=== PATIENT | male | born 1960 | race Caucasian/White ===

== ENCOUNTER 2020-03-27 08:52 | Observation (INO) | payer OTHER, SELFPAY ==
[2020-03-27] VITALS (11 sets, daily range): BP systolic 102–172; BP diastolic 57–96; PULSE 65–98; RESP 14–18; TEMP 36.5–37.1; O2SAT 96–99; BMI 32.8; BMI 33.3
--- NOTE | 2020-03-27 08:58 | RAD_ITS ---
STUDY: X-RAY CHEST REASON FOR EXAM: Male, 59 years old. SOB X ONE DAY TECHNIQUE: Single AP portable view of the chest. COMPARISON: 08/02/2017 FINDINGS: The lungs are clear and expanded. There is no demonstrated pleural abnormality. Normal size heart. Normal mediastinum and drake. Normal visualized pulmonary arteries. Normal visualized aortic arch and descending thoracic aorta. Normal visualized thoracic spine. Normal visualized ribs, clavicles, and shoulders. There is no demonstrated abnormality of the visualized soft tissue structures of the upper abdomen. RAD/Chest 1 View (Portable) IMPRESSION: Normal x-ray examination of the chest. Electronically Signed: Tank Morales MD at 9:29 EDT Tel , Service support ,
--- NOTE | 2020-03-27 08:58 | EKG12_ITS ---
Test Reason : CP Blood Pressure : / mmHG Vent. Rate : 097 BPM Atrial Rate : 097 BPM P-R Int : 154 ms QRS Dur : 092 ms QT Int : 352 ms P-R-T Axes : 031 052 033 degrees QTc Int : 447 ms Normal sinus rhythm Normal ECG Confirmed by GILDA LORENZO MD ([id number]), commercial production editor MG SIMONS ([id number]) on 03/30/2020 1:34:49 PM Referred By: FELISHA Confirmed By:GILDA LORENZO MD
--- NOTE | 2020-03-27 09:12 | ED.VIS.GEN ---
History of Present Illness Chief Complaint: Chest Pain Informant: Patient Onset: Yesterday Narrative: 59-year-old male with past medical history of HTN, HLD, PE, LUÍS presents with chest pain. He states yesterday when he was lifting boxes he felt mildly short of breath but had no pain. Today he was sitting at home working on his computer when he developed left-sided chest pressure and shortness of breath. No associated nausea, vomiting, or diaphoresis. Chest pressure is 3/10. It does worsen with exertion and he felt lightheaded when walking around. No syncope. No cardiac history, never smoker. No history of stress test. He states he had a remote PE and was on Eliquis for 6 months but no longer takes this. Denies recent leg pain or swelling or recent surgery or travel. Denies fevers, chills, myalgias, cough, or sick contacts. His dad had an ID in his 50s. Past Medical History - Allergies and Home Meds Allergies/Adverse Reactions: Allergies erythromycin base Allergy (Verified 06/14/17 20:23) Hives Sulfa (Sulfonamide Antibiotics) Allergy (Verified 06/14/17 20:23) Unknown Primary Care Physician: Matthew Ambrose MD [Primary Care Provider] - Past Medical History: - - Hypertension, hyperlipidemia, pulmonary embolism, LUÍS Surgical History: no surgical history Smoking Status: Never smoker - Family History Maternal Family History: Reports: No pertinent history Paternal Family History: Reports: Heart Disease, - - Father at age of 54 because of heart attack. Sibling Family History: Reports: Heart Disease Review of Systems General: Denies: Chills, Fever, Sweats Eyes: Denies: Visual changes - bilaterally, Diplopia ENT: Denies: Rhinorrhea, Sore throat Cardiovascular: Reports: Chest pain. Denies: Palpitations Respiratory: Reports: Dyspnea. Denies: Cough, Dyspnea on exertion Gastrointestinal: Denies: Abdominal pain, Nausea, Vomiting, Diarrhea, Melena, Hematochezia Genitourinary: Denies: Dysuria, Hematuria, Frequency Musculoskeletal: Denies: Back pain, Extremity Pain Skin: Denies: Rash, Wounds Neurological: Denies: Headache, Weakness, Numbness Physical Exam Vital Signs/Narrative: Vital Signs Temp Pulse Resp BP Pulse Ox 03/27/20 08:58 98 03/27/20 08:53 98.7 F 98 18 172/95 H 97 Inital Vital Signs reviewed: Yes General: Well nourished, Well developed, No Acute Distress Head: Normocephalic, Atraumatic Eyes: Perrl, EOMI ENT: Moist mucous membranes, No rhinorrhea Neck: Supple, Nontender Cardiovascular: Regular rate, Regular rhythm, No murmurs Respiratory: No distress, CTA bilaterally, Chest nontender Abdomen: Soft, Nontender, Nondistended, Normal bowel sounds Back: Nontender, Normal Inspection Extremities: Nontender, No edema Skin: Normal color, No rash Neurological: Alert, Oriented x3, Cranial nerves II-XII grossly intact Psychological: Normal affect, Normal Mood Diagnostic/Tx/Re-eval Clinical Impression(s) from Imaging Studies Chest X-Ray 03/27/20 08:58 IMPRESSION: Normal x-ray examination of the chest. Electronically Signed: Tank Morales MD at 9:29 EDT Tel , Service support , Laboratory Data 03/27/20 03/27/20 03/27/20 08:56 08:56 08:56 WBC 4.4 RBC 5.38 Hgb 17.0 H Hct 49.9 MCV 92.8 MCH 31.6 MCHC 34.1 RDW Std Deviation 41.8 RDW Coeff of Dandy 12.2 Plt Count 222 MPV 9.7 Immature Gran % (Auto) 0.000 Neut % (Auto) 48.9 Lymph % (Auto) 37.6 [place] % (Auto) 9.6 Eos % (Auto) 3.4 Baso % (Auto) 0.5 Absolute Neuts (auto) 2.1 Absolute Lymphs (auto) 1.64 Nucleated RBC % 0 D-Dimer Quant (PE/DVT) 0.28 Sodium 140 Potassium 4.1 Chloride 106 Carbon Dioxide 29.0 Anion Gap 5 BUN 12 Creatinine 1.15 Estim Creat Clear Calc 70.02 Est GFR (MDRD) Af Amer 84 Est GFR (MDRD) Non-Af 69 BUN/Creatinine Ratio 10.4 Glucose 174 H Calcium 9.4 Troponin I < 0.015 - Rhythm Strip Rhythm Strip: Sinus Rhythm Rate: 97 - Medical Decision Making Patient appears well nontoxic. Vital signs show BP of 172/95, otherwise normal. BP improved with no intervention. EKG shows normal sinus rhythm with no sign of ischemia. D-dimer and troponin negative. Chest x-ray shows no acute process. He was given aspirin. Patient was having minimal pain here and declined nitroglycerin. Due to his risk factors and family history is a heart score of 4 and I recommended admission with a stress test. Patient is agreeable. Case was discussed with hospitalist and the patient was transferred to the floor in stable condition. ED Disposition - Plan for ED Patient: Disposition: Acute Care Hospital [facility] Diagnosis: Chest pain Referrals: Matthew Ambrose MD [Primary Care Provider] -
[2020-03-27] MEDS: Aspirin 81 MG TAB.CHEW 324 MG PO (09:13)
[2020-03-27 09:17] LABS: Absolute Lymphocyte Count 1.64 X10^3/uL (0.83-4.51); Absolute Neutrophil Count 2.1 X10^3/uL (2.0-7.7); Basophil# 0.02 X10^3/uL; Basophil% 0.5 % (0-1); Eosinophil# 0.15 X10^3/uL; Eosinophils% 3.4 % (0-5); Hematocrit 49.9 % (40-54); Lymphocyte # 1.64 X10^3/ul (4.0); Lymphocyte % 37.6 % (19-41); Mean Corp Hgb Conc 34.1 g/dL (32-36); Mean Corpuscular Hgb 31.6 pg (27.0-32.0); Mean Corpuscular Volume 92.8 fL (80-94); Mean Platelet Vol. 9.7 fl (6.2-12.0); Monocyte# 0.42 X10^3/uL; Monocyte% 9.6 % (0-10); NRBC Flagged by Analyzer 0 % (0-5); Neutrophil # 2.13 X10^3/uL (2.7-7.7); Neutrophil % 48.9 % (47-70); Platelet Count 222 K/mm3 (150-450); RBC Distribution Width CV 12.2 % (11.6-14.6); RBC Distribution Width SD 41.8 fl (35.1-43.9); Red Blood Count 5.38 M/mm3 (4.6-6.2); White Blood Count 4.4 K/mm3 (4.4-11.0)
[2020-03-27 09:25] LABS: D-Dimer Quantitative (DVT/PE) 0.28 FEU/ug/m (0.27-0.49)
[2020-03-27 09:35] LABS: Anion Gap 5 (5-15); BUN 12 mg/dL (7-18); BUN/Creat Ratio 10.4 RATIO (10-20); Calcium,Total 9.4 mg/dL (8.5-10.1); Chloride 106 mmol/L (98-107); Creatinine, Serum 1.15 mg/dL (0.70-1.30); EST Glomerular Filtration Rate 69 mL/min (>60); Est Glom Filt Rate - Afr Amer 84 mL/min (>60); Estimated Creatinine Clearance 70.02 ml/min; Glucose 174 mg/dL (74-106); Potassium 4.1 mmol/L (3.5-5.1); Sodium Level 140 mmol/L (136-145)
--- NOTE | 2020-03-27 10:23 | HP.PCM_ITS ---
Problem List (1) Chest pain Status: Acute (2) Pulmonary emboli Status: Resolved Qualifiers: Pulmonary embolism type: unspecified Chronicity: unspecified (3) Obstructive sleep apnea Status: Chronic (4) Hyperlipidemia Status: Chronic Qualifiers: Hyperlipidemia type: unspecified Qualified Code(s): E78.5 - Hyperlipidemia, unspecified (5) Hypertension Status: Chronic Qualifiers: Hypertension type: essential hypertension Qualified Code(s): I10 - Essential (primary) hypertension History of Present Illness Date of Admission: 03/27/20 Chief Complaint: Chest pain - 1 day The patient is a 59 year old M with past medical history of hypertension, hyperlipidemia, LUÍS, remote history of PE who comes in with complaints of chest pain that started on the day of admission. Patient complained of substernal chest pain that was worse when he was lifting boxes. It was associated with nausea but no vomiting. He denied any diaphoresis. Patient has been having shortness of breath with exertion. Denied any palpitations, dizziness, or orthopnea or bilateral pedal edema. Vitals in the ED showed temperature of 98.7F, heart rate 98, blood pressure 172/95, respiratory rate 18, SPO2 was 97% on room air. His admitting blood work was unremarkable. EKG showed normal sinus rhythm. No acute ST-T changes. Troponins x2 were negative. Admitting chest x-ray was unremarkable. Past Medical History Past Medical History (Chronic Problems): Chronic Problems Obstructive sleep apnea (Chronic) Hyperlipidemia (Chronic) Hypertension (Chronic) Allergies erythromycin base Allergy (Verified 06/14/17 20:23) Hives Sulfa (Sulfonamide Antibiotics) Allergy (Verified 06/14/17 20:23) Unknown Home Medications: Ambulatory Orders Medication Instructions Recorded Lisinopril [Zestril] 10 mg PO DAILY 06/10/17 [place]-3 Acid Ethyl Esters [Lovaza] 2 gm PO BID 06/10/17 Pravastatin [Pravachol] 40 mg PO QHS 06/10/17 Aspirin 81 mg PO DAILY 03/27/20 Famotidine [Pepcid] 20 mg PO DAILY 03/27/20 Fexofenadine HCl [Ally Allergy] 60 mg PO DAILY 03/27/20 Surgical History: no surgical history Psychiatric History: No pertinent psych hx Lives: Spouse/ Significant Other Smoking Status: Never smoker Tobacco Use: Non-smoker Alcohol: None Drugs: None - *Family History Maternal History Items: No pertinent history Paternal History Items: Heart Disease, - - Father at age of 54 because of heart attack. Sibling History Items: Heart Disease Review of Systems Constitutional: Reports: Malaise, Weakness, Fatigue. Denies: Anorexia, Chills, Fever, Weight Change Eyes: Denies: Blurred vision, Cataracts, Conjunctivae Inflammation, Pain, Redness, Vision Change HEENT: Denies: Difficulty Hearing, Difficulty Swallowing, Head Aches, Hearing Changes, Sinus Congestion, Sinus Drainage Cardiovascular: Reports: Chest Pain, Chest Pressure, Chest Tightness, Heaviness. Denies: Light Headedness, Orthopnea, Palpitations, Syncope Respiratory: Reports: Shortness of breath upon exertion. Denies: Cough, Hemoptysis, Shortness of Breath, Shortness of breath at rest, Sputum production Gastrointestinal: Denies: Abdominal Pain, Constipation, Nausea, Vomiting Genitourinary: Denies: Dysuria, Frequency Musculoskeletal: Denies: Joint Pain, Joint stiffness, Joint swelling, Joint Tenderness, Muscle pain Skin: Denies: Pruritis, Rash, Wounds Neurological: Denies: Numbness, Tingling, Focal weakness Psychiatric: Denies: Anxiety, Depression, Homicidal Ideations, Suicidal Ideations Hematologic/ Lymphatic: Denies: Easy Bruising, Easy Bleeding VTE Information - Inpt Only VTE Present on Admission: No VTE Pharm Prophylaxis ordered?: Yes Patient Problems: Active and Suspected Problems Chest pain (Acute) - Physical Exam Vitals/I&O's: Vital Signs Temp Pulse Resp BP Pulse Ox 98.7 F 87 17 145/57 H 97 03/27/20 08:53 03/27/20 10:19 03/27/20 10:19 03/27/20 10:19 03/27/20 10:19 Oxygen Delivery Method Room Air Weight: 100.7 kg Body Mass Index (BMI) 32.8 General: Alert, Oriented x3, Cooperative, No apparent distress HEENT: Atraumatic, PERRLA, EOMI, Normocephalic Oral: Moist Mucosa Neck: Supple Lungs: Clear to auscultation, Normal air movement Cardiovascular: Regular rate, Regular Rhythm, Normal S1, Normal S2, No murmurs Abdomen: Bowel Sounds Present, Soft, Non Tender, Non-Distended, No Hepato- splenomegaly Extremities: No edema Skin: No rashes Musculoskeletal: No Tenderness to Palpation of Joints or Extremities Lymphatic: No Cervical, Supraclavicular, or Inguinal Adenopathy Neurological: Cranial nerves II-XII grossly intact, Neuro grossly intact Psych/Mental Status: Normal Affect, Appropriate Laboratory Results 03/27/20 08:56: WBC 4.4, RBC 5.38, Hgb 17.0 H, Hct 49.9, MCV 92.8, MCH 31.6, MCHC 34.1, RDW Std Deviation 41.8, RDW Coeff of Dandy 12.2, Plt Count 222, MPV 9.7, Immature Gran % (Auto) 0.000, Neut % (Auto) 48.9, Lymph % (Auto) 37.6, [place] % (Auto) 9.6, Eos % (Auto) 3.4, Baso % (Auto) 0.5, Absolute Neuts (auto) 2.1, Absolute Lymphs (auto) 1.64, Nucleated RBC % 0 03/27/20 08:56: Sodium 140, Potassium 4.1, Chloride 106, Carbon Dioxide 29.0, Anion Gap 5, BUN 12, Creatinine 1.15, Estim Creat Clear Calc 70.02, Est GFR (MDRD) Af Amer 84, Est GFR (MDRD) Non-Af 69, BUN/Creatinine Ratio 10.4, Glucose 174 H, Calcium 9.4, Troponin I < 0.015 03/27/20 08:56: D-Dimer Quant (PE/DVT) 0.28 Assessment/Plan All Active Problems Chest pain (Acute) Pulmonary emboli (Resolved) 1. Chest pain, atypical, in a patient with multiple risk factors Stable vitals, EKG shows no acute ST changes Troponins x2 are negative Admit to PCU, monitor on telemetry, trend troponins, stress test on Sunday, 2D echo 2. Hypertension, controlled, continue on lisinopril 3. LUÍS on CPAP 4. Hyperlipidemia, continue on statin 5. DVT PPx-Heparin SC OBSV E&M: [id number] Initial observation care L3
--- NOTE | 2020-03-27 13:51 | ECHOD_ITS ---
Reason For Study: SOB Procedure This was a 2D Doppler, Color Flow transthoracic echocardiogram. The study was technically difficult. Exam performed in department. Left Ventricle Normal LV size. Left ventricular systolic function is normal. The estimated ejection fraction is 60 %. Stage 1 diastolic dysfunction. No regional wall motion abnormalities noted. Right Ventricle Normal RV size. Normal systolic function. Atria Normal left atrium. Normal right atrium. Mitral Valve Normal mitral valve. Tricuspid Valve Normal tricuspid valve. Aortic Valve Trisinus/trileaflet aortic valve. Pulmonic Valve The pulmonic valve is not well visualized. Great Vessels Normal aortic root. The pulmonary artery is normal size. Pericardium/Pleural No pericardial effusion. Medication Diluted definity 2.5ml given slow IV push to enhance endocardial definition. MMode/2D Measurements & Calculations LVIDd: 3.8 cm IVSd: 0.92 cm Ao root diam: 3.1 cm LVIDs: 2.6 cm LVPWd: 0.83 cm RVDd: 3.2 cm FS: 31.9 % LAV(MOD-bp): 26.8 ml LA A4 area: 10.9 cm2 LA dimension(2D): 2.6 cm LAV(MOD-bp) Indexed: 12.6 ml/m2 LAV(MOD-sp2): 33.4 ml LAV(MOD-sp4): 20.7 ml RA A4 area: 10.1 cm2 Doppler Measurements & Calculations MV E max akin: 64.3 cm/sec Lat Peak E' Akin: 10.1 cm/sec Med Peak E' Akin: 5.8 cm/sec MV A max akin: 86.3 cm/sec E/E' lat: 6.4 E/E' med: 11.1 MV E/A: 0.75 Ao V2 max: 127.7 cm/sec LV V1 max: 91.2 cm/sec PA V2 max: 78.4 cm/sec Ao max P.5 mmHg LV V1 max P.3 mmHg Interpretation Summary Normal LV size. Left ventricular systolic function is normal. The estimated ejection fraction is 60 %. Stage 1 diastolic dysfunction. Contrast injection was performed. Ordering Physician: June Tamez Referring Physician: Matthew Ambrose Performed By: Aurelia Clayton RDCS
--- NOTE | 2020-03-27 14:33 | EKG12_ITS ---
Test Reason : CP Blood Pressure : / mmHG Vent. Rate : 088 BPM Atrial Rate : 088 BPM P-R Int : 156 ms QRS Dur : 090 ms QT Int : 342 ms P-R-T Axes : 039 057 026 degrees QTc Int : 413 ms Normal sinus rhythm Normal ECG When compared with ECG of 27-MAR-2020 08:57, MANUAL COMPARISON REQUIRED, DATA IS UNCONFIRMED Confirmed by MAURA RUDOLPH, GILDA ([id number]), newspaper photo editor DANIEL DUMONT ([id number]) on 04/02/2020 1:08:43 PM Referred By: LAYLA Confirmed By:GILDA LORENZO MD
[2020-03-27] MEDS: Heparin Injection (Vial) 5,000 UNIT/ML VIAL 5000 UNIT SC ×2 (14:55→21:10)
[2020-03-27 17:10] LABS: AST(SGOT) 26 U/L (15-37); Alanine Aminotransfer ALT/SGPT 55 U/L (16-61); Albumin, Serum 3.4 g/dL (3.2-5.0); Alkaline Phosphatase 57 U/L (45-117); Bilirubin, Direct 0.12 mg/dL (0.00-0.30); Globulin 3.7 g/dL (2.2-4.2); Protein, Total 7.1 g/dL (6.4-8.2)
[2020-03-27 17:15] LABS: Hemoglobin A1c 5.4 % (3.8-5.6)
[2020-03-27] MEDS: Pravastatin 40 MG Tablet PO (21:10)
[2020-03-27] MEDS: Omega-3 Acid Ethyl Esters 1 GM Capsule 2 GM PO (21:10)
[2020-03-28] VITALS (9 sets, daily range): BP systolic 108–137; BP diastolic 66–84; PULSE 73–89; RESP 16–18; TEMP 36.5–36.8; O2SAT 95–97
[2020-03-28 06:04] LABS: Absolute Lymphocyte Count 2.11 X10^3/uL (0.83-4.51); Basophil# 0.01 X10^3/uL; Basophil% 0.2 % (0-1); Eosinophil# 0.21 X10^3/uL; Eosinophils% 3.5 % (0-5); Hematocrit 46.3 % (40-54); Hemoglobin 15.7 g/dL (13.0-16.5); Lymphocyte # 2.11 X10^3/ul (4.0); Lymphocyte % 35.3 % (19-41); Mean Corp Hgb Conc 33.9 g/dL (32-36); Mean Corpuscular Hgb 31.8 pg (27.0-32.0); Mean Corpuscular Volume 93.7 fL (80-94); Mean Platelet Vol. 9.9 fl (6.2-12.0); Monocyte# 0.63 X10^3/uL; Monocyte% 10.6 % (0-10); NRBC Flagged by Analyzer 0 % (0-5); Neutrophil % 50.2 % (47-70); Platelet Count 208 K/mm3 (150-450); RBC Distribution Width CV 12.4 % (11.6-14.6); RBC Distribution Width SD 42.9 fl (35.1-43.9); Red Blood Count 4.94 M/mm3 (4.6-6.2)
[2020-03-28] MEDS: Heparin Injection (Vial) 5,000 UNIT/ML VIAL 5000 UNIT SC ×3 (06:07→20:49)
[2020-03-28 06:32] LABS: AST(SGOT) 32 U/L (15-37); Alanine Aminotransfer ALT/SGPT 59 U/L (16-61); Albumin, Serum 3.5 g/dL (3.2-5.0); Alkaline Phosphatase 58 U/L (45-117); Anion Gap 6 (5-15); BUN 12 mg/dL (7-18); BUN/Creat Ratio 10.3 RATIO (10-20); Calcium,Total 8.8 mg/dL (8.5-10.1); Chloride 107 mmol/L (98-107); Cholesterol 185 mg/dL (200); Creatinine, Serum 1.16 mg/dL (0.70-1.30); EST Glomerular Filtration Rate 69 mL/min (>60); Est Glom Filt Rate - Afr Amer 83 mL/min (>60); Estimated Creatinine Clearance 67.16 ml/min; Globulin 3.6 g/dL (2.2-4.2); Glucose 103 mg/dL (74-106); High Density Lipoprotein 43 mg/dL; Potassium 4.6 mmol/L (3.5-5.1); Protein, Total 7.1 g/dL (6.4-8.2); Sodium Level 139 mmol/L (136-145); Triglycerides 302 mg/dL; Very Low Density Lipoprotein 60 mg/dL (5-40)
--- NOTE | 2020-03-28 07:36 | PCM.PN.HOSP ---
Patient Problems: Active and Suspected Problems Chest pain (Acute) Vitals/I&O's: Vital Signs Temp Pulse Resp BP Pulse Ox 98.0 F 74 16 108/66 96 03/28/20 03:15 03/28/20 06:55 03/28/20 03:15 03/28/20 03:15 03/28/20 03:15 Oxygen Delivery Method CPAP Weight: 99.4 kg Body Mass Index (BMI) 33.3 Intake and Output for Last 24 Hours 03/26/20 03/27/20 03/28/20 23:59 23:59 23:59 Intake Total 840 / 960 360 / 360 Balance 840 / 960 360 / 360 Laboratory Results 03/27/20 08:56: WBC 4.4, RBC 5.38, Hgb 17.0 H, Hct 49.9, MCV 92.8, MCH 31.6, MCHC 34.1, RDW Std Deviation 41.8, RDW Coeff of Dandy 12.2, Plt Count 222, MPV 9.7, Immature Gran % (Auto) 0.000, Neut % (Auto) 48.9, Lymph % (Auto) 37.6, [place] % (Auto) 9.6, Eos % (Auto) 3.4, Baso % (Auto) 0.5, Absolute Neuts (auto) 2.1, Absolute Lymphs (auto) 1.64, Nucleated RBC % 0 03/27/20 08:56: Sodium 140, Potassium 4.1, Chloride 106, Carbon Dioxide 29.0, Anion Gap 5, BUN 12, Creatinine 1.15, Estim Creat Clear Calc 70.02, Est GFR (MDRD) Af Amer 84, Est GFR (MDRD) Non-Af 69, BUN/Creatinine Ratio 10.4, Glucose 174 H, Calcium 9.4, Troponin I < 0.015 03/27/20 08:56: D-Dimer Quant (PE/DVT) 0.28 03/27/20 08:56: Hemoglobin A1c 5.4 03/27/20 11:21: Troponin I < 0.015 03/27/20 15:40: Troponin I < 0.015 03/27/20 15:40: Total Bilirubin 0.50, Direct Bilirubin 0.12, AST 26, ALT 55, Alkaline Phosphatase 57, Total Protein 7.1, Albumin 3.4, Globulin 3.7 03/27/20 18:40: Troponin I < 0.015 03/28/20 05:30: WBC 6.0, RBC 4.94, Hgb 15.7, Hct 46.3, MCV 93.7, MCH 31.8, MCHC 33.9, RDW Std Deviation 42.9, RDW Coeff of Dandy 12.4, Plt Count 208, MPV 9.9, Immature Gran % (Auto) 0.200, Neut % (Auto) 50.2, Lymph % (Auto) 35.3, [place] % (Auto) 10.6 H, Eos % (Auto) 3.5, Baso % (Auto) 0.2, Absolute Neuts (auto) 3.0, Absolute Lymphs (auto) 2.11, Nucleated RBC % 0 03/28/20 05:30: Sodium 139, Potassium 4.6, Chloride 107, Carbon Dioxide 26.0, Anion Gap 6, BUN 12, Creatinine 1.16, Estim Creat Clear Calc 67.16, Est GFR (MDRD) Af Amer 83, Est GFR (MDRD) Non-Af 69, BUN/Creatinine Ratio 10.3, Glucose 103, Calcium 8.8, Total Bilirubin 0.80, AST 32, ALT 59, Alkaline Phosphatase 58, Total Protein 7.1, Albumin 3.5, Globulin 3.6, Albumin/Globulin Ratio 1.0, Triglycerides 302 H, Cholesterol 185, LDL Cholesterol 82, VLDL Cholesterol 60 H, HDL Cholesterol 43 Current Medications Acetaminophen (Tylenol) 650 mg PO Q6H PRN PRN PRN Reason: Pain Score 1-10/Temp > 100.7 F Albuterol Sulfate (Ventolin Aerosols) 2.5 mg INHALATION Q2H PRN PRN PRN Reason: SOB/Wheezing Aspirin (Aspirin, Baby) 81 mg PO DAILY@0800 REPLACED BY [facility] Famotidine (Pepcid) 20 mg PO DAILY REPLACED BY [facility] Heparin Sodium (Porcine) (Heparin Na) 5,000 unit SC Q8 REPLACED BY [facility] Last Admin: 03/28/20 06:07 Dose: 5,000 unit Documented by: Sodium Chloride () 250 mls @ 15 mls/hr IV .[id number] PRN PRN Reason: Saline Flush Sodium Chloride () 250 mls @ 15 mls/hr IV .[id number] PRN PRN Reason: Additional IVPB Infusion Influenza Virus Vaccine Quadrival (Flucelvax /Fluzone ) 0.5 ml IM .ONCE ONE Stop: 03/28/20 10:01 Lisinopril (Zestril) 10 mg PO DAILY REPLACED BY [facility] Loratadine (Claritin) 10 mg PO DAILY REPLACED BY [facility] Nitroglycerin (Nitrostat) 0.4 mg SUBLINGUAL Q5M PRN PRN Reason: CARDIAC/CHEST PAIN [id number] Ethyl Esters (Lovaza) 2 gm PO BID REPLACED BY [facility] Last Admin: 03/27/20 21:10 Dose: 2 gm Documented by: Ondansetron HCl (Zofran) 4 mg IV Q8H PRN PRN PRN Reason: NAUSEA/VOMITING Pravastatin Sodium (Pravachol) 40 mg PO QHS REPLACED BY [facility] Last Admin: 03/27/20 21:10 Dose: 40 mg Documented by: Sodium Chloride () 10 - 40 ml IV UD PRN PRN Reason: SALINE FLUSH STROKE Vital Signs/Narrative: Vital Signs Pulse 03/28/20 06:55 74 Medical Necessity - Tobacco Use Smoking Status: Never smoker Tobacco Use: Non-smoker Assessment/Plan All Active Problems Chest pain (Acute) Pulmonary emboli (Resolved) OBSV E&M: 64463 Subsequent observation care L3
[2020-03-28] MEDS: Aspirin 81 MG TAB.CHEW PO (08:18)
[2020-03-28] MEDS: Famotidine 20 MG Tablet PO (08:18)
[2020-03-28] MEDS: Loratadine 10 MG Tablet PO (08:19)
[2020-03-28] MEDS: Omega-3 Acid Ethyl Esters 1 GM Capsule 2 GM PO ×2 (08:20→20:48)
[2020-03-28] MEDS: Lisinopril 10 MG Tablet PO (08:20)
--- NOTE | 2020-03-28 10:22 | PN_ITS ---
<Guille Rock - Last Filed: 03/28/20 10:22> Patient Problems: Active and Suspected Problems Chest pain (Acute) Reason for Visit: chest pain Subjective: Hx DVT / PE. No LE edema recently and D dimer neg. Ongoing chest tightness. SOB improved. No fever/chills/cough. Denies hx CAD. Fm hx CAD. Vitals/I&O's: Vital Signs Temp Pulse Resp BP Pulse Ox 98.3 F 78 16 125/75 H 96 03/28/20 09:15 03/28/20 09:15 03/28/20 09:15 03/28/20 09:15 03/28/20 09:15 Oxygen Delivery Method Room Air Weight: 219 lb 2.232 oz Body Mass Index (BMI) 33.3 Intake and Output for Last 24 Hours 03/26/20 03/27/20 03/28/20 23:59 23:59 23:59 Intake Total 840 / 960 360 / 360 Balance 840 / 960 360 / 360 General: Alert, Oriented x3, Cooperative HEENT: Atraumatic, PERRLA, EOMI, Normocephalic Neck: Supple, No JVD, Negative Carotid Bruits Lungs: Clear to auscultation, Normal air movement Cardiovascular: Regular rate, No murmurs Abdomen: Bowel Sounds Present, Soft, Non Tender Extremities: No edema, Capillary Refill Less than 3 Seconds Skin: No rashes, No breakdown Musculoskeletal: No Tenderness to Palpation of Joints or Extremities Neurological: Cranial nerves II-XII grossly intact Psych/Mental Status: Normal Affect, Appropriate, Alert and oriented to time, place, person, mood and affect Laboratory Results 03/27/20 08:56: Hemoglobin A1c 5.4 03/27/20 11:21: Troponin I < 0.015 03/27/20 15:40: Troponin I < 0.015 03/27/20 15:40: Total Bilirubin 0.50, Direct Bilirubin 0.12, AST 26, ALT 55, Alk anderson Phosphatase 57, Total Protein 7.1, Albumin 3.4, Globulin 3.7 03/27/20 18:40: Troponin I < 0.015 03/28/20 05:30: WBC 6.0, RBC 4.94, Hgb 15.7, Hct 46.3, MCV 93.7, MCH 31.8, MCHC 33.9, RDW Std Deviation 42.9, RDW Coeff of Dandy 12.4, Plt Count 208, MPV 9.9, Immature Gran % (Auto) 0.200, Neut % (Auto) 50.2, Lymph % (Auto) 35.3, [place] % (Auto) 10.6 H, Eos % (Auto) 3.5, Baso % (Auto) 0.2, Absolute Neuts (auto) 3.0, Absolute Lymphs (auto) 2.11, Nucleated RBC % 0 03/28/20 05:30: Sodium 139, Potassium 4.6, Chloride 107, Carbon Dioxide 26.0, Anion Gap 6, BUN 12, Creatinine 1.16, Estim Creat Clear Calc 67.16, Est GFR (MDRD) Af Amer 83, Est GFR (MDRD) Non-Af 69, BUN/Creatinine Ratio 10.3, Glucose 103, Calcium 8.8, Total Bilirubin 0.80, AST 32, ALT 59, Alkaline Phosphatase 58, Total Protein 7.1, Albumin 3.5, Globulin 3.6, Albumin/Globulin Ratio 1.0, Triglycerides 302 H, Cholesterol 185, LDL Cholesterol 82, VLDL Cholesterol 60 H, HDL Cholesterol 43 Current Medications Acetaminophen (Tylenol) 650 mg PO Q6H PRN PRN PRN Reason: Pain Score 1-10/Temp > 100.7 F Albuterol Sulfate (Ventolin Aerosols) 2.5 mg INHALATION Q2H PRN PRN PRN Reason: SOB/Wheezing Aspirin (Aspirin, Baby) 81 mg PO DAILY@0800 [facility] Last Admin: 03/28/20 08:18 Dose: 81 mg Documented by: Famotidine (Pepcid) 20 mg PO DAILY [facility] Last Admin: 03/28/20 08:18 Dose: 20 mg Documented by: Heparin Sodium (Porcine) (Heparin Na) 5,000 unit SC Q8 [facility] Last Admin: 03/28/20 06:07 Dose: 5,000 unit Documented by: Sodium Chloride () 250 mls @ 15 mls/hr IV .[id number] PRN PRN Reason: Saline Flush Sodium Chloride () 250 mls @ 15 mls/hr IV .[id number] PRN PRN Reason: Additional IVPB Infusion Lisinopril (Zestril) 10 mg PO DAILY [facility] Last Admin: 03/28/20 08:20 Dose: 10 mg Documented by: Loratadine (Claritin) 10 mg PO DAILY [facility] Last Admin: 03/28/20 08:19 Dose: 10 mg Documented by: Nitroglycerin (Nitrostat) 0.4 mg SUBLINGUAL Q5M PRN PRN Reason: CARDIAC/CHEST PAIN [id number] Ethyl Esters (Lovaza) 2 gm PO BID [facility] Last Admin: 03/28/20 08:20 Dose: 2 gm Documented by: Ondansetron HCl (Zofran) 4 mg IV Q8H PRN PRN PRN Reason: NAUSEA/VOMITING Pravastatin Sodium (Pravachol) 40 mg PO QHS [facility] Last Admin: 03/27/20 21:10 Dose: 40 mg Documented by: Sodium Chloride () 10 - 40 ml IV UD PRN PRN Reason: SALINE FLUSH STROKE Vital Signs/Narrative: Vital Signs Temp Pulse Resp BP Pulse Ox 03/28/20 09:15 98.3 F 78 16 125/75 H 96 03/28/20 07:35 96 03/28/20 06:55 74 Medical Necessity - Tobacco Use Smoking Status: Never smoker Tobacco Use: Non-smoker Assessment/Plan All Active Problems Chest pain (Acute) Pulmonary emboli (Resolved) 1. Chest pain - stress test in AM. EKG neg, trop neg x 3. FLP on chart. Continue asa/statin. a1c 5.4. D dimer neg. No events on tele 2. Hx PE/dvt - previously on OAC, now no longer. D dimer neg. No inciting event per pt. 3. LUÍS - CPAP qhs. 4. HTN - stable 5. HLD - statin DVT ppx: heparin This patient was seen by Guille Rock PA-C under the supervision of Doctor Dashawn. <Dashawn,[place] - Last Filed: 03/28/20 13:35> Vitals/I&O's: Vital Signs Temp Pulse Resp BP Pulse Ox 98.3 F 78 16 125/75 H 96 03/28/20 09:15 03/28/20 09:15 03/28/20 09:15 03/28/20 09:15 03/28/20 09:15 Oxygen Delivery Method Room Air Weight: 99.4 kg Body Mass Index (BMI) 33.3 Intake and Output for Last 24 Hours 03/26/20 03/27/20 03/28/20 23:59 23:59 23:59 Intake Total 840 / 960 360 / 360 Balance 840 / 960 360 / 360 Laboratory Results 03/27/20 08:56: Hemoglobin A1c 5.4 03/27/20 15:40: Troponin I < 0.015 03/27/20 15:40: Total Bilirubin 0.50, Direct Bilirubin 0.12, AST 26, ALT 55, Alkaline Phosphatase 57, Total Protein 7.1, Albumin 3.4, Globulin 3.7 03/27/20 18:40: Troponin I < 0.015 03/28/20 05:30: WBC 6.0, RBC 4.94, Hgb 15.7, Hct 46.3, MCV 93.7, MCH 31.8, MCHC 33.9, RDW Std Deviation 42.9, RDW Coeff of Dandy 12.4, Plt Count 208, MPV 9.9, Immature Gran % (Auto) 0.200, Neut % (Auto) 50.2, Lymph % (Auto) 35.3, [place] % (Auto) 10.6 H, Eos % (Auto) 3.5, Baso % (Auto) 0.2, Absolute Neuts (auto) 3.0, Absolute Lymphs (auto) 2.11, Nucleated RBC % 0 03/28/20 05:30: Sodium 139, Potassium 4.6, Chloride 107, Carbon Dioxide 26.0, Anion Gap 6, BUN 12, Creatinine 1.16, Estim Creat Clear Calc 67.16, Est GFR (MDRD) Af Amer 83, Est GFR (MDRD) Non-Af 69, BUN/Creatinine Ratio 10.3, Glucose 103, Calcium 8.8, Total Bilirubin 0.80, AST 32, ALT 59, Alkaline Phosphatase 58, Total Protein 7.1, Albumin 3.5, Globulin 3.6, Albumin/Globulin Ratio 1.0, Triglycerides 302 H, Cholesterol 185, LDL Cholesterol 82, VLDL Cholesterol 60 H, HDL Cholesterol 43 Current Medications Acetaminophen (Tylenol) 650 mg PO Q6H PRN PRN PRN Reason: Pain Score 1-10/Temp > 100.7 F Albuterol Sulfate (Ventolin Aerosols) 2.5 mg INHALATION Q2H PRN PRN PRN Reason: SOB/Wheezing Aspirin (Aspirin, Baby) 81 mg PO DAILY@0800 [facility] Last Admin: 03/28/20 08:18 Dose: 81 mg Documented by: Famotidine (Pepcid) 20 mg PO DAILY [facility] Last Admin: 03/28/20 08:18 Dose: 20 mg Documented by: Heparin Sodium (Porcine) (Heparin Na) 5,000 unit SC Q8 [facility] Last Admin: 03/28/20 06:07 Dose: 5,000 unit Documented by: Sodium Chloride () 250 mls @ 15 mls/hr IV .[id number] PRN PRN Reason: Saline Flush Sodium Chloride () 250 mls @ 15 mls/hr IV .[id number] PRN PRN Reason: Additional IVPB Infusion Lisinopril (Zestril) 10 mg PO DAILY [facility] Last Admin: 03/28/20 08:20 Dose: 10 mg Documented by: Loratadine (Claritin) 10 mg PO DAILY [facility] Last Admin: 03/28/20 08:19 Dose: 10 mg Documented by: Nitroglycerin (Nitrostat) 0.4 mg SUBLINGUAL Q5M PRN PRN Reason: CARDIAC/CHEST PAIN [id number] Ethyl Esters (Lovaza) 2 gm PO BID [facility] Last Admin: 03/28/20 08:20 Dose: 2 gm Documented by: Ondansetron HCl (Zofran) 4 mg IV Q8H PRN PRN PRN Reason: NAUSEA/VOMITING Pravastatin Sodium (Pravachol) 40 mg PO QHS [facility] Last Admin: 03/27/20 21:10 Dose: 40 mg Documented by: Sodium Chloride () 10 - 40 ml IV UD PRN PRN Reason: SALINE FLUSH Assessment/Plan This patient was seen in conjunction with HÉCTOR Spears. I have independently interviewed and examined the patient and reviewed pertinent historical, laboratory, and other data. Please refer to HÉCTOR Spears note for his patient's presentation, findings, and recommendations. I have reviewed and his note and concur with his documentation Patient was seen and examined. Complains of slight chest discomfort. Otherwise no acute events overnight. Physical Exam: Gen: Comfortable, not pale, not jaundiced CVS:HS I +II, regular, no murmurs RESP: Diminished at lung bases GI: BS present and normal, soft, nontender, no palpable organs EXT:No edema ASSESSMENT: 1. Chest pain 2. Hypertension 3. Hyperlipidemia 4. LUÍS 5. History of PE/DVT Plan: Continue with aspirin, lisinopril Stress test in a.m. OBSV E&M: 23117 Subsequent observation care L2
[2020-03-28] MEDS: Pravastatin 40 MG Tablet PO (20:48)
[2020-03-29] VITALS (8 sets, daily range): BP systolic 113–141; BP diastolic 75–90; PULSE 66–94; RESP 16–18; TEMP 36.6–36.9; O2SAT 94–99
[2020-03-29] MEDS: Aspirin 81 MG TAB.CHEW PO (05:54)
[2020-03-29] MEDS: Lisinopril 10 MG Tablet PO (05:54)
--- NOTE | 2020-03-29 05:55 | EKG12_ITS ---
Test Reason : AM EKG Blood Pressure : / mmHG Vent. Rate : 086 BPM Atrial Rate : 086 BPM P-R Int : 152 ms QRS Dur : 088 ms QT Int : 346 ms P-R-T Axes : 039 055 040 degrees QTc Int : 414 ms Normal sinus rhythm Normal ECG When compared with ECG of 27-MAR-2020 11:25, MANUAL COMPARISON REQUIRED, DATA IS UNCONFIRMED Confirmed by MAURA RUDOLPH, GILDA ([id number]), digital editor DANIEL DUMONT ([id number]) on 04/02/2020 1:07:18 PM Referred By: DR RICH Confirmed By:GILDA LORENZO MD
[2020-03-29] MEDS: 0.9% Saline Lock 10 ML Syringe IV ×2 (11:19→12:44)
[2020-03-29] MEDS: Loratadine 10 MG Tablet PO (11:19)
[2020-03-29] MEDS: Omega-3 Acid Ethyl Esters 1 GM Capsule 2 GM PO (11:19)
[2020-03-29] MEDS: Famotidine 20 MG Tablet PO (11:20)
--- NOTE | 2020-03-29 11:33 | PCM.DC ---
- Discharge Diagnoses Current Active Problems: Current Active and Chronic Problems 1. Chest pain, unclear etiology, suspected noncardiac with negative stress testing 2. History of pulmonary embolism/DVT previously on oral anticoagulant therapy 3. LUÍS on CPAP nightly 4. Hypertension 5. Hyperlipidemia 6. Obesity You will use the following diet at home:: Cardiac Your food should be the consistency of: Regular Your liquids should be the consistency of: Regular/Thin Discharge Activity: Return to Normal Activity May resume sexual activity in: No Restrictions Weight Bearing Status: Weight bearing as tolerated Call your doctor if you observe: Fever of 101 or Higher, Inability to urinate, Inability to have a bowel movement, Shortness of breath, Dizziness, Fainting spells, Chest pain, Uncontrolled pain Instructions: ED Chest Pain NonCardiac, ED Chest Pain Atypical Unkn Cause Additional Instructions: The chest pain you experienced is not from your heart. The stress test is negative and your heart squeezed normally. The alarm security or surveillance monitor you wore showed no problem with the rhythm of your heart. Additionally, the cardiac enzyme series performed remained normal. Sometimes chest pain can come from a problem with the muscles or skeleton and/or associated with straining or doing some strenuous activity you do not normally perform. Generally Aleve or Motrin will help allieviate this discomfort if these medications are appropriate for you to take. Chest pain can also be associated with anxiety and with this you frequently have racing heart, trouble sleeping and irritability. It can also come from gastroesophageal reflux disease or heartburn. People who smoke experience increased heartburn because nicotine decreases the pressure in the lower esophageal sphincter and causes reflux. This type of discomfort is well treated with drinking a large glass of cold water which strips the acid out of the esophagus or taking Mylanta, Maalox or Pepto-Bismol. Other foods to avoid if you have reflux are chocolate, peppermint and calcium containing products such as Tums. Your complaint of chest tightness may be also secondary to underlying allergic rhinitis component, possibly undiagnosed pulmonary associated component. If there are ongoing issues, we may need to consider outpatient pulmonary function testing or more aggressive allergy treatment. Allergies/Adverse Reactions: Allergies erythromycin base Allergy (Verified 06/14/17 20:23) Hives Sulfa (Sulfonamide Antibiotics) Allergy (Verified 06/14/17 20:23) Unknown Medications to take at Discharge Lisinopril [Zestril] 10 mg PO DAILY 06/10/17 [place]-3 Acid Ethyl Esters [Lovaza] 2 gm PO BID 06/10/17 Pravastatin [Pravachol] 40 mg PO QHS 06/10/17 Aspirin 81 mg PO DAILY 03/27/20 Famotidine [Pepcid] 20 mg PO DAILY 03/27/20 Fexofenadine HCl [Ally Allergy] 60 mg PO DAILY 03/27/20 Albuterol IH (ProAir) [Proair Hfa] 1 - 2 puff INHALATION Q4H PRN PRN #1 inhaler 03/29/20 The following prescriptions were given: Albuterol IH (ProAir) [Proair Hfa] 1 - 2 puff INHALATION Q4H PRN PRN #1 inhaler PRN Reason: allergic rhinitis Transmission Status: Pending to [id number] Primary Care Physician: Matthew Ambrose MD [Primary Care Provider] - Please follow up with your Primary Care Physician in: Follow-up within 3-5 days to review admission. Test Results: Test results from this visit will be discussed in further detail at your follow-up appointment, if applicable. Proposed Discharge Date: 03/29/20
[2020-03-29] MEDS: Ketorolac 15 MG/ML Vial IV (12:43)
--- NOTE | 2020-03-29 13:26 | STRESSREP ---
Stress Test Report Exercise myocardial perfusion stress test. 59-year-old lady with a history of chest pain. Stress protocol: Resting EKG demonstrates normal sinus rhythm with a rate of 93 bpm normal intervals are noted resting blood pressure is 126/84 mmHg. The patient exercised according to regular Andres protocol for a total duration of 6 minutes and 30 seconds. The maximum heart rate attained was 166 bpm which was 102% of maximum predicted heart rate the maximum workload was 7.7 metabolic equivalents. At rest there were no ST or T wave changes noted to suggest ischemia at peak exercise upsloping ST changes only were noted with no meet the criteria for ischemia. No clinical angina was noted the test was terminated due to dyspnea. Myocardial perfusion protocol. 11.9 mCi of technetium 99m sestamibi was injected at rest. Patient exercised according to regular Andres protocol for 6-1/2 minutes. At peak exercise 34.3 mCi of technetium 99m sestamibi was injected stress images were obtained stress and rest images were reconstructed and compared in the short axis vertical long horizontal long axis. Gated images were also obtained P Perfusion SPECT analysis: Review of the stress images demonstrate normal uptake of tracer noted in all areas of the myocardium the resting images similar demonstrate normal uptake of tracer noted in all areas of the myocardium. No areas of reversibility are noted to suggest ischemia no previous infarct is noted. Gated SPECT analysis: The gated ejection fraction is 78%. Conclusion: Normal exercise myocardial perfusion stress test. Preserved ejection fraction.
--- NOTE | 2020-03-29 13:59 | DS.PCM_ITS ---
Discharge Date and Diagnosis Date of Admission: 03/27/20 Date of Discharge: 03/29/20 - Primary Discharge Diagnosis Acute Problems: Chest pain - musculoskeletal - Secondary Discharge Diagnosis Chronic Problems: Chronic Problems Obstructive sleep apnea (Chronic) Hyperlipidemia (Chronic) Hypertension (Chronic) Hospital Course and Treatment Imaging Results: RAD/Chest 1 View (Portable) IMPRESSION: Normal x-ray examination of the chest. 2D TTE: Interpretation Summary Normal LV size. Left ventricular systolic function is normal. The estimated ejection fraction is 60 %. Stage 1 diastolic dysfunction. Contrast injection was performed. Stress test: Gated SPECT analysis: The gated ejection fraction is 78%. Conclusion: Normal exercise myocardial perfusion stress test. Preserved ejection fraction. Operations: None Procedures: 2-D Echocardiogram, Stress test Summary of Care Provided: Hospital course: The patient is a 59 year old M with pmhx PE, DVT, HTN, HLD who presented to the ER with chest pain that occurred while lifting boxes. This was substernal and associated with SOB and tightness. He came to the ER and had negative troponin, negative CXR, negative D dimer, negative EKG. He was admitted for chest pain workup. He had an echo which showed EF 60% and stage 1 diastolic dysfunction. Troponin negative x 3. No events on tele. Stress test was negative. He had pain reproducible on palpation of the left sternal border. He was felt to have musculoskeletal pain. He was discharged home in stable condition. Follow up with PCP in 1 week. This patient was seen by Guille Rock PA-C under the supervision of Dr. Mckeon. [] - Physical Exam Vitals/I&O's: Vital Signs Temp Pulse Resp BP Pulse Ox 98.5 F 90 16 126/77 H 96 03/29/20 12:10 03/29/20 12:10 03/29/20 12:10 03/29/20 12:10 03/29/20 12:10 Oxygen Delivery Method Room Air Weight: 219 lb 2.232 oz Body Mass Index (BMI) 33.3 Intake and Output for Last 24 Hours 03/27/20 03/28/20 03/29/20 23:59 23:59 23:59 Intake Total 840 / 960 720 / 1020 750 / 750 Balance 840 / 960 720 / 1020 750 / 750 General: Alert, Oriented x3, Cooperative HEENT: Atraumatic, PERRLA, EOMI, Normocephalic Neck: Supple, No JVD, Negative Carotid Bruits Lungs: Clear to auscultation, Normal air movement Cardiovascular: Regular rate, No murmurs Abdomen: Bowel Sounds Present, Soft, Non Tender Extremities: No edema, Capillary Refill Less than 3 Seconds Skin: No rashes, No breakdown Musculoskeletal: No Tenderness to Palpation of Joints or Extremities, - - tender to light palpation of the LSB 4th ICS Neurological: Cranial nerves II-XII grossly intact Psych/Mental Status: Normal Affect, Appropriate, Alert and oriented to time, place, person, mood and affect Discharge Diet: Low fat/ Low Cholesterol, 2000 mg Sodium Diet Discharge Activity: Return to Normal Activity May resume sexual activity in: No Restrictions Weight Bearing Status: Weight bearing as tolerated Call your doctor if you observe: Fever of 101 or Higher, Inability to urinate, Inability to have a bowel movement, Shortness of breath, Dizziness, Fainting spells, Chest pain, Uncontrolled pain Home Medications: Medications to take at Discharge Lisinopril [Zestril] 10 mg PO DAILY 06/10/17 [place]-3 Acid Ethyl Esters [Lovaza] 2 gm PO BID 06/10/17 Pravastatin [Pravachol] 40 mg PO QHS 06/10/17 Aspirin 81 mg PO DAILY 03/27/20 Famotidine [Pepcid] 20 mg PO DAILY 03/27/20 Fexofenadine HCl [Ally Allergy] 60 mg PO DAILY 03/27/20 Albuterol IH (ProAir) [Proair Hfa] 1 - 2 puff INHALATION Q4H PRN PRN #1 inhaler 03/29/20 Following Prescriptions Were Given to Patient: Albuterol IH (ProAir) [Proair Hfa] 1 - 2 puff INHALATION Q4H PRN PRN #1 inhaler PRN Reason: allergic rhinitis Transmission Status: Received by [id number] Primary Care Physician: Matthew Ambrose MD [Primary Care Provider] - Please follow up with your Primary Care Physician in: Follow-up within 3-5 days to review admission. Patient Instructions: ED Chest Pain NonCardiac, ED Chest Pain Atypical Unkn Cause Disposition: Home Minutes spent on discharge:: 35 Patient Condition:: Stable Medical Necessity - Tobacco Use Smoking Status: Never smoker Tobacco Use: Non-smoker Meaningful Use Info Meaningful Use Diagnoses (Choose all that apply): None applicable
== END 2020-03-29 11:37 | disposition home or self-care (01) ==
LOC: ED 10:39 → PCU 10:53
PROVIDERS: Admitting Provider Internal Medicine; Emergency Provider Physician Assistant; PCP Family Medicine; Visit Provider Family Medicine
DX: R07.89 Other chest pain (principal); E78.5 Hyperlipidemia, unspecified; I10 Essential (primary) hypertension; G47.33 Obstructive sleep apnea (adult) (pediatric); Z86.711 Personal history of pulmonary embolism; Z23 Encounter for immunization; Z86.718 Personal history of other venous thrombosis and embolism; E66.9 Obesity, unspecified; Z68.32 Body mass index [BMI] 32.0-32.9, adult; Z79.899 Other long term (current) drug therapy
CPT/HCPCS: 36415; 71045; 78452; 80048; 80053; 80061; 80076; 83036; 84484; 85025; 85379; 93005; 93017; 93306; 96372; 96374; 99218; 99285; A9500; Q9957; 90686; A4216; C8929; G0378